=== PATIENT | female | born 1930 | race Caucasian/White ===

== ENCOUNTER 2017-02-25 18:57 | Inpatient (IN) | payer OTHER, MEDICAID ==
[~2017-02-25] VITALS: Ht 157.5 cm; Wt 67.8 kg
[2017-02-25] MEDS ORDERED: ASPI-515 PO (19:15)
[2017-02-25] MEDS ORDERED: ACET325T14 PO (19:16)
[2017-02-25] MEDS ORDERED: DIAZ5TAB4 PO (19:16)
[2017-02-25] MEDS ORDERED: MORPHINE SULFATE 4 MG/ML, 1ML ONE (19:51)
[2017-02-25] MEDS ORDERED: ONDANSETRON 2MG/ML, 2ML ONE (19:52)
[2017-02-25] MEDS ORDERED: ONDANSETRON 2MG/ML, 2ML IVPush ONE (20:00)
[2017-02-25] MEDS ORDERED: SODIUM CHLORIDE 0.9% 1,000ML IVBOLUS ONE (20:00)
[2017-02-25] MEDS ORDERED: MORPHINE SULFATE 4 MG/ML, 1ML IVPush ONE (20:00)
[2017-02-25] MEDS ORDERED: SODIUM CHLORIDE FLUSH 10ML SYR IVF ONE (20:00)
[2017-02-25 20:51] LABS: ASPARTATE AMINO TRANSFERASE 21 U/L (15-37); BLOOD UREA NITROGEN 15 mg/dL (7-18)
[2017-02-25 22:07] LABS: HEMATOCRIT 35.7 % (34.6-47.8); HEMOGLOBIN 11.8 g/dL (11.7-16.4); WHITE BLOOD COUNT 14.4 x10^3/uL (3.4-10)
[2017-02-25] MEDS ORDERED: CLINDAMYCIN PMX 900MG/50ML 0 ML ONE (23:43)
[2017-02-25] MEDS ORDERED: CEFTRIAXONE PMX 1GM/50ML 50 ML ONE (23:50)
[2017-02-26] MEDS ORDERED: CLINDAMYCIN PMX 900MG/50ML 50 ML IV ONE
[2017-02-26] MEDS ORDERED: CEFTRIAXONE PMX 1GM/50ML 50 ML IV ONE
[2017-02-26] MEDS ORDERED: morphine SULFATE 10 MG/ML, 1ML IVPush PRN (00:30)
[2017-02-26] MEDS ORDERED: HYDROcodone/APAP 5/325 TABLET PO PRN (00:30)
[2017-02-26] MEDS ORDERED: ONDANSETRON 2MG/ML, 2ML IVPush PRN ×2 (00:30)
[2017-02-26] MEDS ORDERED: POLYETHYLENE GLYCOL 17 GM PACKET PO PRN (00:30)
[2017-02-26] MEDS ORDERED: DOCUSATE 100 MG CAPSULE PO PRN (00:30)
[2017-02-26] MEDS ORDERED: ACETAMINOPHEN 325 MG TABLET PO PRN (00:30)
[2017-02-26 02:18] VITALS: BP 106/59
[2017-02-26] MEDS: NS + 20MEQ KCL 1,000 ML IV SCH ×2 (02:21→15:26)
[2017-02-26] MEDS: CEFTRIAXONE PMX 1GM/50ML 50 ML IV SCH (02:21)
[2017-02-26] MEDS: ENOXAPARIN 40 MG/0.4 ML SQ SCH (02:22)
[2017-02-26] MEDS ORDERED: OMNIPAQUE 350 MG/ML, 100ML BOTTLE ONE (02:44)
[2017-02-26 06:31] VITALS: BP 103/63
[2017-02-26] MEDS: SENNA/DOCUSATE TABLET PO SCH (10:13)
[2017-02-26] MEDS: DIAZEPAM 5 MG TABLET PO SCH (10:13)
[2017-02-26] MEDS: ASPIRIN 81 MG TABLET EC PO SCH (10:13)
[2017-02-26 13:16] VITALS: BP 102/60
[2017-02-26 18:47] VITALS: BP 104/62
[2017-02-26 20:38] VITALS: BP 104/62
[2017-02-27] MEDS: CEFTRIAXONE PMX 1GM/50ML 50 ML IV SCH (00:51)
[2017-02-27] MEDS: ENOXAPARIN 40 MG/0.4 ML SQ SCH (00:51)
[2017-02-27 01:30] VITALS: BP 108/63
[2017-02-27] MEDS: NS + 20MEQ KCL 1,000 ML IV SCH ×2 (04:41→15:07)
[2017-02-27 05:24] LABS: HEMATOCRIT 34.7 % (34.6-47.8); HEMOGLOBIN 11.3 g/dL (11.7-16.4); WHITE BLOOD COUNT 9.3 x10^3/uL (3.4-10)
[2017-02-27 05:34] LABS: BLOOD UREA NITROGEN 10 mg/dL (7-18)
[2017-02-27 07:50] VITALS: BP 125/75
[2017-02-27] MEDS: SENNA/DOCUSATE TABLET PO SCH (09:50)
[2017-02-27] MEDS: DIAZEPAM 5 MG TABLET PO SCH (09:50)
[2017-02-27] MEDS: ASPIRIN 81 MG TABLET EC PO SCH (09:50)
[2017-02-27 13:37] VITALS: BP 109/61
[2017-02-27 20:23] VITALS: BP 129/72
[2017-02-28] MEDS: CEFTRIAXONE PMX 1GM/50ML 50 ML IV SCH (00:51)
[2017-02-28] MEDS: ENOXAPARIN 40 MG/0.4 ML SQ SCH (00:51)
[2017-02-28] MEDS: NS + 20MEQ KCL 1,000 ML IV SCH ×3 (01:14→22:44)
[2017-02-28 01:58] VITALS: BP 127/66
[2017-02-28 07:24] VITALS: BP 130/87
[2017-02-28] MEDS: DIAZEPAM 5 MG TABLET PO SCH (09:23)
[2017-02-28] MEDS: ASPIRIN 81 MG TABLET EC PO SCH (09:23)
[2017-02-28] MEDS: SENNA/DOCUSATE TABLET PO SCH (09:24)
[2017-02-28 13:36] VITALS: BP 115/74
[2017-02-28] MEDS: PIPERACILLIN/TAZO/PMX 3.375GM 50 ML IV SCH ×2 (14:54→19:35)
[2017-02-28 19:11] VITALS: BP 121/72
[2017-03-01] MEDS: ENOXAPARIN 40 MG/0.4 ML SQ SCH (01:25)
[2017-03-01] MEDS: PIPERACILLIN/TAZO/PMX 3.375GM 50 ML IV SCH ×4 (01:25→21:10)
[2017-03-01 01:26] VITALS: BP 144/71
[2017-03-01 07:41] VITALS: BP 120/67
[2017-03-01] MEDS: ASPIRIN 81 MG TABLET EC PO SCH (09:06)
[2017-03-01] MEDS: SENNA/DOCUSATE TABLET PO SCH (09:06)
[2017-03-01] MEDS: NS + 20MEQ KCL 1,000 ML IV SCH ×2 (09:11→21:10)
[2017-03-01] MEDS: DIAZEPAM 5 MG TABLET PO SCH (09:23)
[2017-03-01] MEDS ORDERED: NITR100C56 PO (10:43)
[2017-03-01 12:27] VITALS: BP 96/60
[2017-03-01 18:57] VITALS: BP 125/72
[2017-03-02 01:33] VITALS: BP 121/70
[2017-03-02] MEDS: ENOXAPARIN 40 MG/0.4 ML SQ SCH (02:51)
[2017-03-02] MEDS: PIPERACILLIN/TAZO/PMX 3.375GM 50 ML IV SCH ×4 (02:51→20:52)
[2017-03-02 07:51] VITALS: BP 124/74
[2017-03-02] MEDS: ASPIRIN 81 MG TABLET EC PO SCH (07:59)
[2017-03-02] MEDS: DIAZEPAM 5 MG TABLET PO SCH (08:00)
[2017-03-02] MEDS: SENNA/DOCUSATE TABLET PO SCH (08:00)
[2017-03-02] MEDS: NS + 20MEQ KCL 1,000 ML IV SCH (09:03)
[2017-03-02 14:00] VITALS: BP 132/74
[2017-03-02 20:01] VITALS: BP 121/71
[2017-03-03] MEDS: PIPERACILLIN/TAZO/PMX 3.375GM 50 ML IV SCH ×2 (03:03→08:45)
[2017-03-03] MEDS: ENOXAPARIN 40 MG/0.4 ML SQ SCH (03:03)
[2017-03-03 03:05] VITALS: BP 148/62
[2017-03-03 07:05] VITALS: BP 100/65
[2017-03-03] MEDS: SENNA/DOCUSATE TABLET PO SCH (07:49)
[2017-03-03] MEDS: DIAZEPAM 5 MG TABLET PO SCH (07:49)
[2017-03-03] MEDS: ASPIRIN 81 MG TABLET EC PO SCH (07:49)
[2017-03-03] MEDS ORDERED: NITR100C56 PO (09:33)
[2017-03-03 12:41] VITALS: BP 107/73
== END 2017-03-03 15:03 | DRG 871 ==
LOC: EDSEX 18:57 → ED 20:34 → EDIP 23:53 → SUATTDRO 02-26 00:17 → 3NE 02-26 01:38
PROVIDERS: ADMIT Family Medicine; ATTEND Family Medicine
PROC: 0T9B70Z Drainage of Bladder with Drainage Device, Via Natural or Artificial Opening (ICD-10-PCS; principal; 2017-02-25)
DX: A41.9 Sepsis, unspecified organism (principal); G93.40 Encephalopathy, unspecified; L03.113 Cellulitis of right upper limb; N39.0 Urinary tract infection, site not specified; E44.0 Moderate protein-calorie malnutrition; I71.4 Abdominal aortic aneurysm, without rupture; B95.5 Unspecified streptococcus as the cause of diseases classified elsewhere; B96.20 Unspecified Escherichia coli [E. coli] as the cause of diseases classified elsewhere; F02.80 Dementia in other diseases classified elsewhere, unspecified severity, without behavioral disturbance, psychotic disturbance, mood disturbance, and anxiety; G30.9 Alzheimer's disease, unspecified; G89.29 Other chronic pain; E86.0 Dehydration; I70.0 Atherosclerosis of aorta; K57.30 Diverticulosis of large intestine without perforation or abscess without bleeding; K80.20 Calculus of gallbladder without cholecystitis without obstruction; Z66 Do not resuscitate; Z82.49 Family history of ischemic heart disease and other diseases of the circulatory system; Z83.3 Family history of diabetes mellitus; Z90.710 Acquired absence of both cervix and uterus; Z68.27 Body mass index [BMI] 27.0-27.9, adult
CPT/HCPCS: 36415; 70450; 72125; 74177; 80048; 80053; 81001; 85025; 85651; 86140; 87077; 87086; 87186; 96361; 96374; 96375; J0696; J1650; J2405; J2543; J3480; Q9967; J7030